=== PATIENT | female | born 1945 ===

== ENCOUNTER 2019-09-14 11:46 | Outpatient (CLI) | payer MEDICARE | END 2019-09-14 11:47 | disposition short-term general hospital (02) | LOC: EMS 11:46 | PROVIDERS: ATTEND Surgery | DX: R07.89 Other chest pain (principal) | CPT/HCPCS: A0425; A0427 ==

== ENCOUNTER 2022-04-02 18:27 | Outpatient (CLI) | payer MEDICARE | END 2022-04-02 18:28 | disposition EMS.NT | LOC: EMS 18:27 | DX: I10 Essential (primary) hypertension (principal); F41.9 Anxiety disorder, unspecified ==